=== PATIENT | male | born 1970 | race African-American/Black ===

== ENCOUNTER 2020-09-29 12:16 | Emergency (ER) | payer OTHER ==
[~2020-09-29] VITALS: Ht 182.9 cm; Wt 63.5 kg
[2020-09-29 12:29] VITALS: BP 122/82
[2020-09-29] MEDS ORDERED: ZANAFLEX4 MG PO (12:56)
[2020-09-29] MEDS ORDERED: PREDNISONE 20 M20 MG PO (12:56)
== END 2020-09-29 13:09 | disposition home or self-care (01) ==
LOC: ER 12:16
DX: M54.17 Radiculopathy, lumbosacral region (principal)

== ENCOUNTER 2020-12-05 12:01 | Emergency (ER) | payer OTHER ==
[~2020-12-05] VITALS: Ht 182.9 cm; Wt 63.5 kg
[~2020-12-05 12:01] MED LIST: PREDNISONE 20 M20 MG PO; ZANAFLEX4 MG PO
[2020-12-05] MEDS ORDERED: ROBAXIN 750 MG750 MG PO (12:26)
[2020-12-05] MEDS ORDERED: MEDROLDOSEPACK PO (12:26)
[2020-12-05 13:28] VITALS: BP 121/90
== END 2020-12-05 13:28 | disposition home or self-care (01) ==
LOC: ER 12:01
DX: M54.41 Lumbago with sciatica, right side (principal); Z79.899 Other long term (current) drug therapy

== ENCOUNTER 2021-01-09 19:25 | Emergency (ER) | payer OTHER ==
[~2021-01-09] VITALS: Ht 182.9 cm; Wt 63.5 kg
[~2021-01-09 19:25] MED LIST changes: +MEDROLDOSEPACK PO; +ROBAXIN 750 MG750 MG PO
[2021-01-09 19:27] VITALS: BP 128/83
[2021-01-09] MEDS ORDERED: MEDROLDOSEPACK PO (20:10)
[2021-01-09] MEDS ORDERED: NORCO5 PO (20:10)
== END 2021-01-09 20:30 | disposition home or self-care (01) ==
LOC: ER 19:25
DX: M54.41 Lumbago with sciatica, right side (principal); Z76.0 Encounter for issue of repeat prescription; Z79.899 Other long term (current) drug therapy